=== PATIENT | female | born 1960 | race Hispanic/Latino ===

== ENCOUNTER 2018-10-20 16:31 | Observation (INO) | payer MEDICARE ==
[~2018-10-20] VITALS: Ht 154.9 cm; Wt 64.4 kg
--- OUTSIDE RECORDS SUMMARY | 2018-10-20 16:34 | XMS REPORT ---
[facility] Address Unknown Phone Unavailable Care Team Providers Care Core Finisher Name Role Phone Unavailable Unavailable Payers Payer Name Policy Type Policy Number Effective Date Expiration Date Problems This patient has no known problems. Allergies, Adverse Reactions, Alerts Allergy Name Allergy Type Status Severity Reaction(s) Onset Date Inactive Date Treating Clinician Comments No Known Allergies DA Active U 2018-08-17 00:00:00 No Known Allergies DA Active U 2016-07-01 00:00:00 Medications This patient has no known medications. Results Test Description Test Time Test Comments Text Results Atomic Results Result Comments ELECTROLYTES PROFILE 2018-08-17 16:18:00 SODIUM (test code=NA) 138 mmol/L 136-145 POTASSIUM (test code=K) 3.9 mmol/L 3.5-5.1 CHLORIDE (test code=CL) 106.0 mmol/L 98-107 CARBON DIOXIDE (test code=CO2) 26.0 mmol/L 21-32 ANION GAP (test code=GAP) 9.9 10-20 CBC W/AUTO [id number] 16:12:00* Test Item Value Reference Range Comments WHITE BLOOD CELL (test code=WBC) 5.5 K/mm3 4.5-12.5 RED BLOOD CELL (test code=RBC) 4.16 mill/mm3 3.7-5.2 HEMOGLOBIN (test code=HGB) 11.1 gram/dL 11.5-15.5 HEMATOCRIT (test code=HCT) 36.3 % 36.0-46.0 MEAN CELL VOLUME (test code=MCV) 87.3 fL 80-98 MEAN CELL HGB (test code=MCH) 26.7 picogram 27.0-33.0 MEAN CELL HGB CONCETRATION (test code=MCHC) 30.6 gram/dL 33.0-36.0 RED CELL DISTRIBUTION WIDTH (test code=RDW) 14.5 % 11.6-16.2 RED CELL DISTRIBUTION WIDTH SD (test code=RDW-SD) 46.5 fL 37.0-51.0 PLATELET COUNT (test code=PLT) 290 K/mm3 150-450 MEAN PLATELET VOLUME (test code=MPV) 10.8 fL 6.7-11.0 NEUTROPHIL % (test code=NT%) 68.2 % 39.0-69.0 IMMATURE GRANULOCYTE % (test code=IG%) 0.4 % 0.0-5.0 LYMPHOCYTE % (test code=LY%) 19.4 % 25.0-55.0 MONOCYTE % (test code=MO%) 7.5 % 0.0-10.0 EOSINOPHIL % (test code=EO%) 4.0 % 0.0-5.0 BASOPHIL % (test code=BA%) 0.5 % 0.0-1.0 NUCLEATED RBC % (test code=NRBC%) 0.0 % 0-0 NEUTROPHIL # (test code=NT#) 3.72 K/mm3 1.8-7.7 IMMATURE GRANULOCYTE # (test code=IG#) 0.02 x10 3/uL 0-0.03 LYMPHOCYTE # (test code=LY#) 1.06 K/mm3 1.0-5.0 MONOCYTE # (test code=MO#) 0.41 K/mm3 0-0.8 EOSINOPHIL # (test code=EO#) 0.22 K/mm3 0.0-0.5 BASOPHIL # (test code=BA#) 0.03 K/mm3 0.0-0.2 NUCLEATED RBC # (test code=NRBC#) 0.00 K/mm3 0.0-0.1
[2018-10-20 18:10] LABS: BASOPHILS % 0.2 % (0.0-1.0); EOSINOPHILS # (AUTO) 0.1 (0.0-0.4); EOSINOPHILS % 1.3 % (0.0-6.0); LYMPHOCYTES # (AUTO) 0.6 (1.0-3.2); LYMPHOCYTES % 11.2 % (18.0-39.1); MEAN CORPUSCULAR HEMOGLOBIN 28.7 pg (28-32); MEAN CORPUSCULAR HGB CONC 27.9 g/dL (31-35); MONOCYTES # (AUTO) 0.4 (0.2-0.8); MONOCYTES % 7.3 % (4.4-11.3); NEUTROPHILS # (AUTO) 4.3 (2.1-6.9); NEUTROPHILS % 79.4 % (38.7-80.0); PLATELET COUNT 331 x10e3/uL (140-360); RED BLOOD COUNT 1.67 x10e6/uL (3.6-5.1); RED CELL DISTRIBUTION WIDTH 18.4 % (11.7-14.4)
[2018-10-20 18:12] LABS: HEMATOCRIT 17.2 % (34.2-44.1); HEMOGLOBIN 4.8 g/dL (12.0-16.0)
[2018-10-20 18:13] LABS: INR 1.11; PROTHROMBIN TIME 14.8 seconds (11.9-14.5)
[2018-10-20 18:14] LABS: PARTIAL THROMBOPLASTIN TIME 28.8 seconds (23.8-35.5)
[2018-10-20] MEDS ORDERED: SODIUM CHLORIDE 0.9% 250ML 250 ML IV ONE (18:15)
[2018-10-20 18:28] LABS: ALBUMIN 3.1 g/dL (3.5-5.0); ALBUMIN/GLOBULIN RATIO 1.5 (0.8-2.0); ANION GAP 9.9 mmol/L (8-16); CALCIUM 9.1 mg/dL (8.4-10.2); CREATININE, SERUM 1.06 mg/dL (0.57-1.11); POTASSIUM 3.9 mmol/L (3.5-5.1)
[2018-10-20 18:34] LABS: CREATINE KINASE MB 0.9 ng/mL (0-5.0)
--- NOTE | 2018-10-20 19:00 | NUR ---
RECEIVED REPORT FROM EDNA GORMAN
[2018-10-20] MEDS ORDERED: DEXTROSE 50% SYRINGE 50 ML IV PRN (19:30)
[2018-10-20] MEDS ORDERED: SODIUM CHLORIDE FLUSH 10 ML SYR INJ PRN (19:30)
[2018-10-20] MEDS ORDERED: SERTRALINE HCL100 MG PO (20:24)
[2018-10-20] MEDS ORDERED: FENOFIBRATE145 MG PO (20:24)
[2018-10-20] MEDS ORDERED: ANASTROZOLE1 MG PO (20:24)
[2018-10-20] MEDS ORDERED: NEXIUM40 MG PO (20:24)
[2018-10-20] MEDS ORDERED: BENZTROPINE MESY1 MG PO (20:24)
[2018-10-20] MEDS ORDERED: ZIPRASIDONE HCL60 MG PO (20:24)
[2018-10-20] MEDS ORDERED: FLUPHENAZINE HC10 MG PO (20:24)
[2018-10-20] MEDS ORDERED: LITHIUM CARBON450 MG PO (20:24)
[2018-10-20] MEDS ORDERED: METFORMIN HCL500 MG PO (20:24)
[2018-10-20] MEDS ORDERED: ATORVASTATIN CA20 MG PO (20:24)
[2018-10-20] MEDS: INSULIN REGULAR, HUMAN 100 UNIT/1 ML 3ML VIAL SQ SCH (21:00)
--- NOTE | 2018-10-20 21:11 | NUR ---
received patient aaox3, poor historian, receiving blood transfusion, tolerating well. no sob. denies pain. bed locked and in lowest position, call light within reach. bed alarm on.
[2018-10-20 21:27] VITALS: BP 101/52
--- NOTE | 2018-10-20 21:46 | NUR ---
spoke with Dr. Flores regarding stat consult, MD aware and will see patient.
[2018-10-20 21:57] VITALS: BP 101/52
[2018-10-20 21:58] VITALS: BP 101/52
--- NOTE | 2018-10-20 22:30 | NUR ---
X1 UNIT OF BLOOD COMPLETE AT THIS TIME, PATIENT TOLERATED WELL.
--- NOTE | 2018-10-20 22:48 | NUR ---
Dr. Flores rounded. Verbal orders received to give only 2 units of blood. lab orders entered. spoke with medical lab technologist stated immunoglobin labs are send outs, will draw in AM. questioned lab about cancelling 2 units of blood per MD orders, stated its an open order now, just chicken picker 2nd unit. placed notify by md order to only give 2 units of blood.
[2018-10-20] MEDS: FUROSEMIDE INJ 10 MG/ML 2 ML VIAL IV PRN (23:14)
[2018-10-20] MEDS ORDERED: FERROUS SULFAT325 MG (23:49)
[2018-10-20 23:55] VITALS: BP 104/54
[2018-10-21] MEDS ORDERED: SODIUM CHLORIDE 0.9% 250ML 250 ML ONE (02:00)
[2018-10-21 02:05] VITALS: BP_SYST 101; BP_SYST 103; BP_SYST 109; BP_SYST 91; BP_SYST 93; BP_DIAS 55; BP_DIAS 56; BP_DIAS 57; BP_DIAS 60
--- NOTE | 2018-10-21 02:30 | NUR ---
2ND UNIT OF BLOOD TRANSFUSING. REMAINED WITH PATIENT FOR FIRST 15 MIN. VSS. WILL CONTINUE TO MONITOR PATIENT. TOLERATING TRANSFUSION.
[2018-10-21 04:41] VITALS: BP 103/56
--- NOTE | 2018-10-21 05:13 | NUR ---
BLOOD TRANSFUSION COMPLETE AT THIS TIME. NO S/S OF ADVERSE REACTION. PATIENT IN STABLE CONDITION, VSS. WILL CONTINUE TO MONITOR.
[2018-10-21] MEDS: FUROSEMIDE INJ 10 MG/ML 2 ML VIAL IV PRN (06:24)
[2018-10-21] MEDS: INSULIN REGULAR, HUMAN 100 UNIT/1 ML 3ML VIAL SQ SCH ×3 (07:30→16:05)
[2018-10-21 07:52] VITALS: BP 102/59
[2018-10-21 07:53] VITALS: BP 102/59
[2018-10-21 08:47] LABS: BASOPHILS # (AUTO) 0.1 (0.0-0.1); BASOPHILS % 1.1 % (0.0-1.0); EOSINOPHILS # (AUTO) 0.1 (0.0-0.4); EOSINOPHILS % 2.5 % (0.0-6.0); HEMATOCRIT 24.5 % (34.2-44.1); HEMOGLOBIN 7.4 g/dL (12.0-16.0); LYMPHOCYTES # (AUTO) 0.7 (1.0-3.2); LYMPHOCYTES % 14.6 % (18.0-39.1); MEAN CORPUSCULAR HEMOGLOBIN 28.7 pg (28-32); MEAN CORPUSCULAR HGB CONC 30.2 g/dL (31-35); MONOCYTES # (AUTO) 0.3 (0.2-0.8); MONOCYTES % 6.8 % (4.4-11.3); NEUTROPHILS # (AUTO) 3.5 (2.1-6.9); NEUTROPHILS % 74.6 % (38.7-80.0); PLATELET COUNT 335 x10e3/uL (140-360); RED BLOOD COUNT 2.58 x10e6/uL (3.6-5.1); RED CELL DISTRIBUTION WIDTH 19.4 % (11.7-14.4)
[2018-10-21 11:53] VITALS: BP 101/65
[2018-10-21] MEDS ORDERED: SODIUM CHLORIDE 0.9% 250ML 250 ML IV NR (12:00)
--- NOTE | 2018-10-21 12:54 | NUR ---
Dr Blanchard consulted per telephone order from Dr Chung. PRBC transfusion started and no reaction after 1st 15 min. will monitor closely.
[2018-10-21] MEDS ORDERED: CYANOCOBALAMIN INJ 1,000 MCG/ML VIAL IM NR (13:30)
--- NOTE | 2018-10-21 14:56 | History and Physical ---
Consultation to Dr. Gilberto Chung. HISTORY OF PRESENT ILLNESS: Liudmila Menchaca is a 58-year-old female, who is known to me for approximately 30 years for breast cancer with liver metastases, only one of those patients, who have survived this long with confirmed from liver metastases. FAMILY HISTORY: Noncontributory. FAMILY HISTORY: Noncontributory. ALLERGIES: REPORTED NONE. MEDICATIONS: At the present time: 1. Lasix. 2. Regular insulin. The patient had presented with weakness. REVIEW OF SYSTEMS: HEENT: Normal. CARDIAC: Normal. RESPIRATORY: Normal. GI: Normal. : Normal. MUSCULOSKELETAL: Normal. SKIN: Bilateral mastectomy with liver metastases. BREASTS: Bilateral mastectomy with liver metastases. PHYSICAL EXAMINATION: GENERAL: A remarkable well-built female, very anemic. NECK: No palpable adenopathy. HEART: Within normal limits. LUNGS: Clear. BREASTS: Shows only chest wall, no masses. ABDOMEN: Obese. RECTAL: Deferred. VAGINAL: Deferred. CENTRAL NERVOUS SYSTEM: Essentially normal. EXTREMITIES: Essentially normal. LABORATORY DATA: Shows a hemoglobin of 12.8, hematocrit 17.2, MCV high at 103, MCHC very low at 27.9, RDW high at 18.4, white count of 5450, and platelets are reported at 331,000. The patient's chemistry shows a sodium of 137, potassium 3.9, chloride 109, CO2 22, BUN 8, and creatinine 1.06. Total proteins low at 5.2, albumin low at 3.1, globulin is low at 2.1, and B12 low at 229. The ferritin level is not available at this time for review. Quantitation of immunoglobulins have been done. IMPRESSION: 1. Breast cancer, status post bilateral mastectomy. 2. Liver metastases, in complete remission. 3. Combined deficiency anemia. 4. Hypoproteinemia. 5. Hypoalbuminemia. 6. Hyperglobulinemia. 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 PLAN, COMMENTS, AND SUGGESTIONS: Suggest blood, suggest B12, suggest an EGD and colonoscopy as part of workup. The patient's stool for occult blood was suggested, however, the results are not available at this time. The patient's retic response is high at 11.7%, however, does not have antibodies, so this is not hemolysis. I will confine myself to Hematology. Thank you very much for allowing me to participate in the management of this patient. MD ERAN Kaur/ANGELA /[id number] cc: MD Yobani Fam MD
[2018-10-21 15:29] VITALS: BP 109/60
== END 2018-10-21 16:35 | disposition home or self-care (01) ==
LOC: ER 16:31 → ERHOLD 19:26 → MED/SURG 21:14
PROVIDERS: ADMIT Internal Medicine; ATTEND Internal Medicine
DX: D50.0 Iron deficiency anemia secondary to blood loss (chronic) (principal); E11.9 Type 2 diabetes mellitus without complications; F32.9 Major depressive disorder, single episode, unspecified; K21.9 Gastro-esophageal reflux disease without esophagitis; E78.5 Hyperlipidemia, unspecified; Z90.49 Acquired absence of other specified parts of digestive tract; Z83.3 Family history of diabetes mellitus; Z82.49 Family history of ischemic heart disease and other diseases of the circulatory system; N28.9 Disorder of kidney and ureter, unspecified; R53.1 Weakness; Z85.3 Personal history of malignant neoplasm of breast; Z85.05 Personal history of malignant neoplasm of liver; E77.8 Other disorders of glycoprotein metabolism; E88.09 Other disorders of plasma-protein metabolism, not elsewhere classified; R77.1 Abnormality of globulin; Z90.13 Acquired absence of bilateral breasts and nipples; Z79.84 Long term (current) use of oral hypoglycemic drugs
CPT/HCPCS: 36415 ×2; 36430; 80053; 82550; 82553; 82607; 82728; 82784 ×3; 82948 ×2; 84484; 85025 ×2; 85045; 85610; 85730; 86850; 86900; 86920; 99284; G0378 ×2; J1940 ×2; J7050 ×2; P9016 ×2

== ENCOUNTER → 2018-12-05 | Day surgery (SDC) | payer MEDICARE ==
[~2018-12-05] MED LIST: ANASTROZOLE1 MG PO; ATORVASTATIN CA20 MG PO; BENZTROPINE MESY1 MG PO; EPINEPHRINE HCL 1:1000 1ML 1 MG/ML AMP ONE; FENOFIBRATE145 MG PO; FENTANYL CITRATE/PF 100MCG/2 ML INJ ONE; FERROUS SULFAT325 MG; FLUPHENAZINE HC10 MG PO; GLUCAGON FOR INJ 1 MG VIAL ONE; LIDOCAINE HCL 2% LOCAL INJ 5 ML SDV VIAL INJ ONE; LITHIUM CARBON450 MG PO; METFORMIN HCL500 MG PO; NEXIUM40 MG PO; PROPOFOL IV EMULSION 10 MG/ML 20 ML VIAL ONE; SERTRALINE HCL100 MG PO; ZIPRASIDONE HCL60 MG PO
[2018-12-05 14:40] VITALS: BP 131/85
== END | disposition home or self-care (01) ==
LOC: OR 09:30
PROVIDERS: ATTEND Internal Medicine Gastroenterology
DX: K29.70 Gastritis, unspecified, without bleeding (principal); D12.0 Benign neoplasm of cecum; D12.2 Benign neoplasm of ascending colon; D12.3 Benign neoplasm of transverse colon; D12.4 Benign neoplasm of descending colon; D12.9 Benign neoplasm of anus and anal canal; K31.7 Polyp of stomach and duodenum; K21.9 Gastro-esophageal reflux disease without esophagitis; K44.9 Diaphragmatic hernia without obstruction or gangrene; D64.9 Anemia, unspecified; R63.4 Abnormal weight loss; E11.9 Type 2 diabetes mellitus without complications; F20.9 Schizophrenia, unspecified; F32.9 Major depressive disorder, single episode, unspecified; E78.5 Hyperlipidemia, unspecified; Z79.82 Long term (current) use of aspirin; Z79.84 Long term (current) use of oral hypoglycemic drugs; Z85.3 Personal history of malignant neoplasm of breast; Z80.0 Family history of malignant neoplasm of digestive organs
CPT/HCPCS: 36415; 43236; 43239; 43251; 45384; 45385; 82948; 88305; 88312; 93005; J0171; J1610; J2001; J2704; J3010; 43255; 45378

== ENCOUNTER → 2019-01-30 | Day surgery (SDC) | payer MEDICARE, MEDICAID ==
[~2019-01-30] MED LIST changes: -LIDOCAINE HCL 2% LOCAL INJ 5 ML SDV VIAL INJ ONE; +MIDAZOLAM HCL 2 MG/2 ML VIAL ONE; -PROPOFOL IV EMULSION 10 MG/ML 20 ML VIAL ONE; +PROPOFOL IV EMULSION 10 MG/ML 50 ML VIAL ONE
[2019-01-30 13:47] VITALS: BP 155/88
== END | disposition home or self-care (01) ==
LOC: OR 10:04
PROVIDERS: ATTEND Internal Medicine Gastroenterology
DX: K31.7 Polyp of stomach and duodenum (principal); K29.70 Gastritis, unspecified, without bleeding; K44.9 Diaphragmatic hernia without obstruction or gangrene; R63.4 Abnormal weight loss; D50.9 Iron deficiency anemia, unspecified; E11.9 Type 2 diabetes mellitus without complications; E78.5 Hyperlipidemia, unspecified; F20.9 Schizophrenia, unspecified; F30.9 Manic episode, unspecified; Z79.84 Long term (current) use of oral hypoglycemic drugs; Z79.82 Long term (current) use of aspirin; Z85.3 Personal history of malignant neoplasm of breast; Z80.0 Family history of malignant neoplasm of digestive organs
CPT/HCPCS: 36415; 43236; 43251; 82948; 88305; J0171; J1610; J2250; J2704; J3010; 43235; 43255; 88312

== ENCOUNTER → 2019-05-08 | Day surgery (SDC) | payer MEDICARE ==
[~2019-05-08] MED LIST changes: +ABILIFY5 MG PO; +ASPIR 8181 MG PO; -EPINEPHRINE HCL 1:1000 1ML 1 MG/ML AMP ONE; +IRON PO
[2019-05-08 13:05] VITALS: BP 121/76
== END | disposition home or self-care (01) ==
LOC: OR 08:54
PROVIDERS: ATTEND Internal Medicine Gastroenterology
DX: K31.7 Polyp of stomach and duodenum (principal); D12.4 Benign neoplasm of descending colon; D12.3 Benign neoplasm of transverse colon; K29.70 Gastritis, unspecified, without bleeding; K63.9 Disease of intestine, unspecified; K57.30 Diverticulosis of large intestine without perforation or abscess without bleeding; K21.9 Gastro-esophageal reflux disease without esophagitis; K44.9 Diaphragmatic hernia without obstruction or gangrene; K64.8 Other hemorrhoids; D50.9 Iron deficiency anemia, unspecified; E11.9 Type 2 diabetes mellitus without complications; F20.9 Schizophrenia, unspecified; F31.9 Bipolar disorder, unspecified; Z01.810 Encounter for preprocedural cardiovascular examination; Z79.82 Long term (current) use of aspirin; Z79.84 Long term (current) use of oral hypoglycemic drugs; Z85.3 Personal history of malignant neoplasm of breast; Z80.0 Family history of malignant neoplasm of digestive organs
CPT/HCPCS: 36415; 43239; 43251; 45380; 45385; 82948; 88305; 93005; J1610; J2250; J2704; J3010; 45378; 88312

== ENCOUNTER → 2024-10-11 | Outpatient (REF) | payer MEDICARE ==
[~2024-10-11] MED LIST changes: +ARIMIDEX1 MG PO; -FENTANYL CITRATE/PF 100MCG/2 ML INJ ONE; -GLUCAGON FOR INJ 1 MG VIAL ONE; -MIDAZOLAM HCL 2 MG/2 ML VIAL ONE; -PROPOFOL IV EMULSION 10 MG/ML 50 ML VIAL ONE
== END ==
LOC: DX 10:30
PROVIDERS: ATTEND Internal Medicine
DX: M85.88 Other specified disorders of bone density and structure, other site (principal)
CPT/HCPCS: 77080